=== PATIENT | female | born 2000 ===

== ENCOUNTER → 2023-01-05 15:43 | Outpatient (CLI) | payer OTHER, MEDICAID, SELFPAY | PROVIDERS: PCP Student in an Organized Health Care Education/Training Program; Visit Provider Student in an Organized Health Care Education/Training Program | DX: N89.8 Other specified noninflammatory disorders of vagina (principal) | CPT/HCPCS: 87210 ==

== ENCOUNTER → 2023-03-07 09:41 | Outpatient (CLI) | payer OTHER, MEDICAID, SELFPAY ==
[2023-03-07 11:51] LABS: Add Manual Diff / Slide Review NO; Basophils Absolute Auto 100 /uL (0-100); Basophils Percent Auto 1.1 % (0-2); Eosinophils Absolute Auto 300 /uL (0-450); Eosinophils Percent Auto 4.6 % (2-4); Hematocrit 38.5 % (36-46); Hemoglobin 13.5 g/dL (12.0-16.0); Lymphocytes Absolute Auto 1900 /uL (1100-4500); Mean Corpuscular Hemoglobin 33.6 PG (26-34); Mean Corpuscular Volume 96.1 fL (80-100); Monocytes Absolute Auto 500 /uL (0-900); Monocytes Percent Auto 6.8 % (3-14); Neutrophils Absolute Auto 4200 /uL (1500-7000); Neutrophils Percent Auto 60.5 % (50-75); Platelet Count 373 X10^3/uL (150-400); Red Cell Distribution Width 11.9 % (11.6-14.8); White Blood Cell Count 6.9 X10^3/uL (4.5-11.0)
[2023-03-07 11:55] LABS: HEMOLYSIS < 15 (0-50); Iron 107 ug/dL (37-170)
[2023-03-07 12:06] LABS: Percent Iron Saturation 31 % (15-50); Total Iron Binding Capacity 344 ug/dL (265-497); Transferrin 295 mg/dL (206-381)
[2023-03-07 12:28] LABS: TSH w/ Reflex to FT4 2.93 uIU/mL (0.47-4.68)
[2023-03-07 12:32] LABS: Ferritin 19 ng/mL (6-137)
[2023-03-07 13:03] LABS: Folate 18.4 ng/mL (2.76-20.0); Vitamin B12 > 1000 pg/mL (239-931)
[2023-03-09 11:47] LABS: Interpretation Negative (Negative)
== END ==
PROVIDERS: PCP Student in an Organized Health Care Education/Training Program; Referring Provider Student in an Organized Health Care Education/Training Program; Visit Provider Student in an Organized Health Care Education/Training Program
DX: Z86.39 Personal history of other endocrine, nutritional and metabolic disease (principal); R14.0 Abdominal distension (gaseous); L65.9 Nonscarring hair loss, unspecified
CPT/HCPCS: 36415; 82607; 82728; 82746; 83013; 83540; 83550; 84443; 85025

== ENCOUNTER → 2023-04-30 11:20 | Outpatient (CLI) | payer OTHER, MEDICAID, SELFPAY | PROVIDERS: PCP Student in an Organized Health Care Education/Training Program; Visit Provider Student in an Organized Health Care Education/Training Program | DX: N89.8 Other specified noninflammatory disorders of vagina (principal) | CPT/HCPCS: 87210 ==

== ENCOUNTER → 2023-06-13 10:09 | Outpatient (CLI) | payer OTHER, MEDICAID, SELFPAY ==
[2023-06-13 11:21] LABS: HEMOLYSIS < 15 (0-50); Iron 132 ug/dL (37-170)
[2023-06-13 11:31] LABS: Percent Iron Saturation 43 % (15-50); Total Iron Binding Capacity 310 ug/dL (265-497); Transferrin 234 mg/dL (206-381)
[2023-06-13 11:54] LABS: Ferritin 19 ng/mL (6-137)
== END ==
PROVIDERS: PCP Student in an Organized Health Care Education/Training Program; Referring Provider Student in an Organized Health Care Education/Training Program; Visit Provider Student in an Organized Health Care Education/Training Program
DX: Z86.39 Personal history of other endocrine, nutritional and metabolic disease (principal)
CPT/HCPCS: 36415; 82728; 83540; 83550